=== PATIENT | male | born 1995 | race Caucasian/White ===

== ENCOUNTER 2016-04-06 16:42 | Emergency (ER) | payer OTHER ==
[~2016-04-06] VITALS: Ht 180.3 cm; Wt 117.9 kg
[~2016-04-06 16:42] MED LIST: AMOXICILLIN875 M1 PO; AUGMENTIN 875 M1 TAB PO; BENZONATATE200 MG PO; IBUPROFEN800 M1 PO; MEN'S MULTI-VI1 EACH PO; PROAIR HFA8.5 GM INH; PROVENTIL0.09 MG/A1 INH; VITAMIN B-121000 MC3 PO
--- NOTE | 2016-04-06 18:16 | ED HAND/WRIST INJURY COMPLAINT ---
History of Present Illness General Chief Complaint: Hand or Wrist Injury Stated Complaint: S/P FALL YESTERDAY RIGHT WRIST PAIN Source: patient Exam Limitations: no limitations Vital Signs & Intake/Output Vital Signs & Intake/Output Vital Signs Date Time Temp Pulse Resp B/P Pulse O2 O2 Flow FiO2 Ox Delivery Rate 04/06 1939 98.7 98 18 117/79 96 04/06 1656 98.0 93 14 127/81 100 Room Air Triage Note: PT TO ED FOR R WRIST PAIN AFTER SLIPPING AND FALLING SATURDAY. NO SWELLING, REDNESS OR DEFORMITY NOTED. 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 Triage Nurses Notes Reviewed? yes Occurred: 4 DAYS Duration: day(s): (4) Timing: no prior history Injury Environment: home Severity: moderate Severity Numbers: 6 Pain/Injury Location: Right: Wrist, Hand. Context: blow Method of Injury: twisted Modifying Factors: Improves With: immobilization. Worsens With: movement. HPI: Patient is a 21-year-old male presenting to the emergency Department with mom with chief complaint of right wrist, right hand pain has been going on for the past 4 days. Patient reports that he was walking down steps, slipped and twisted his right hand and wrist. Since then he's had moderate achy throbbing pain that is nonradiating. Pain is worse with movement. Has been taking Tylenol with little relief. Denies history of similar symptoms. No other injury. No numbness or tingling. No weakness. (DOMO CARMICHAEL,DEB) Allergies Coded Allergies: loracarbef (From LORABID) (Intermediate, HEART RACES 01/22/16) Uncoded Allergies: STEROIDS (Intermediate, HEART RACING PER PT MOM WAS GIVEN A KID FOR POISON JAN 04/06/16) Reconcile Medications No Known Home Medications (RUBEN VALVERDE,DIONTE Temple) Past History Travel History Traveled to [place] past 21 day No Medical History Any Pertinent Medical History? 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 No (DEB YE) Review of Systems Review of Systems Constitutional: Reports: no symptoms. Comments Review of systems: See HPI, All other systems negative. Constitutional, no chills fever or weight loss HEENT: No visual changes no sore throat no congestion Cardiovascular: No chest pain Skin, no jaundice no rashes Respiratory: No dyspnea cough sputum or hemoptysis GI: No nausea no vomiting Muscle skeletal: no back pain, no neck pain, Neurologic: No numbness no confusion Psych: No stress anxiety Immunology: No splenectomy or history of AIDS (DEB YE) Physical Exam Physical Exam General Appearance: well developed/nourished, no apparent distress, alert, awake , comfortable Hand Left: normal inspection, normal range of motion Hand Right: normal inspection, limited range of motion, tender Comments: Well-developed well-nourished no apparent distress. HEENT: Atraumatic, extraocular motion intact Neck: Supple, no lymphadenopathy Back: Nontender Respiratory: No respiratory distress Extremities: Tender to palpation over the distal radius. No snuffbox tenderness on the right. Limited range of motion of right wrist secondary to pain. Capillary refills intact in upper [place] bilaterally. Radial pulses are 2+ bilaterally. Full range of motion of right elbow. Neuro: Alert and oriented x3, motor and sensory intact in upper extremities. Psych: Mood affect normal, normal memory normal judgment. (DEB YE) Progress Differential Diagnosis: cellulitis, contusion, dislocation, fracture, sprain Plan of Care: Orders Procedure Date/time Status Durable Medical Equipment 04/06 1932 Active Departure Departure Time of Disposition: 1930 Disposition: HOME OR SELF CARE Condition: Stable Clinical Impression Primary Impression: Wrist sprain Qualifiers: Encounter type: initial encounter Laterality: right Qualified Code: S63.501A - Unspecified sprain of right wrist, initial encounter Referrals: COURTNEY SANDERS MD (PCP/Family) MARIA EUGENIA VALVERDE,EDUARDO Temple Additional Instructions: Follow-up with orthopedics if symptoms persist collimating appointment. Wear splint for support. Take [id number] Motrin and Tylenol as directed. Elevate. Return for worsening symptoms or concerns. Departure Forms: Customer Survey General Discharge Information (DEB YE) Departure Prescriptions: Current Visit Scripts No Known Home Medications PA/RN PROVIDER RELATIONS Co-Sign Statement Statement: ED Attending supervision documentation- [] I saw and evaluated the patient. I have also reviewed all the pertinent lab results and diagnostic results. I agree with the findings and the plan of care as documented in the PA's/RN PROVIDER RELATIONS's documentation. [x] I have reviewed the ED Record and agree with the PA's/RN PROVIDER RELATIONS's documentation. [] Additions or exceptions (if any) to the PAs/RN PROVIDER RELATIONS's note and plan are summarized below: [] (RUBEN VALVERDE,DIONTE Temple) Procedures Splinting Location: RIGHT WRIST Manual Alignment Performed: No Pre-Made Type: velcro Splint: wrist Splint Applied By: splint applied by other (NURSING) Pre-Proc Neuro Vasc Exam: normal Post-Proc Neuro Vasc Exam: normal Progress: Patient tolerated procedure well. (DOMO CARMICHAEL,DEB)
--- NOTE | 2016-04-06 19:29 | RADIOLOGY REPORT ---
EXAMINATION: XR WRIST, RIGHT, XR HAND, RIGHT CLINICAL INFORMATION: Pain status post fall COMPARISON: None. TECHNIQUE: 3 views of right hand, 4 views of the right wrist FINDINGS: Hand: There are no fractures or dislocations. No joint effusion is identified. No bone, joint or soft tissue abnormality is demonstrated. Wrist: No acute fracture or subluxation. The carpal rows are maintained. No radiopaque foreign body. No lytic or sclerotic lesion. IMPRESSION: Unremarkable right hand and wrist radiographs.
[2016-04-06 19:39] VITALS: BP 117/79
== END 2016-04-06 19:36 ==
LOC: ERH 16:42
DX: S63.501A Unspecified sprain of right wrist, initial encounter (principal); W01.0XXA Fall on same level from slipping, tripping and stumbling without subsequent striking against object, initial encounter
CPT/HCPCS: 73110-RT; 73130-RT

== ENCOUNTER 2016-07-13 06:41 | Emergency (ER) | payer OTHER ==
[~2016-07-13] VITALS: Ht 185.4 cm; Wt 114.8 kg
[2016-07-13 06:50] VITALS: BP 127/75
[2016-07-13] MEDS ORDERED: BLEPH-105 ML OPH (07:23)
--- NOTE | 2016-07-13 07:24 | ED EYE COMPLAINT ---
History of Present Illness General Chief Complaint: Eye Problems Stated Complaint: LEFT EYE PROBLEM ?PINK EYE Source: patient Exam Limitations: no limitations Vital Signs & Intake/Output Vital Signs & Intake/Output Vital Signs Date Time Temp Pulse Resp B/P B/P Pulse O2 O2 Flow FiO2 Mean Ox Delivery Rate 07/13 0650 97.7 88 18 127/75 95 Room Air Allergies Coded Allergies: loracarbef (From LORABID) (Intermediate, HEART RACES 01/22/16) Uncoded Allergies: STEROIDS (Intermediate, HEART RACING PER PT MOM WAS GIVEN A KID FOR POISON JAN 04/06/16) Reconcile Medications No Known Home Medications Triage Note: PT TO ED WITH COMPLAINTS OF ITCHY LEFT EYE THAT STARTED LAST NIGHT. PT STATES THAT UPON AWAKENING THIS MORNING HE WAS UNABLE TO OPEN LEFT EYE AND IT WAS IRRITATED. PT HAS HX OF SEASONAL ALLEGIES. NO REDNESS OR WATERING NOTED TO LEFT EYE AT THIS TIME. Triage Nurses Notes Reviewed? yes Onset: Abrupt Duration: hour(s): (2), continues in ED, getting worse Injury Environment: home Severity: moderate HPI: Patient presents for evaluation of possible left pink eye patient states that his left eye was inflamed and "shut" this morning with itchiness. 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 He does also suffer seasonal allergy symptoms but they typically don't result in eye symptoms. Past History Travel History Traveled to [place] past 21 day No Medical History Any Pertinent Medical History? 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 No Review of Systems Review of Systems Constitutional: Reports: no symptoms. Eyes: Reports: see HPI. Ear: Reports: no symptoms. Nose: Reports: no symptoms. Mouth: Reports: no symptoms. Throat: Reports: no symptoms. Respiratory: Reports: no symptoms. Cardiovascular: Reports: no symptoms. GI: Reports: no symptoms. Genitourinary: Reports: no symptoms. Musculoskeletal: Reports: no symptoms. Skin: Reports: no symptoms. Neurological/Psychological: Reports: no symptoms. Hematologic/Endocrine: Reports: no symptoms. Immunologic/Allergic: Reports: no symptoms. All Other Systems: Reviewed and Negative Physical Exam General Appearance: well developed/nourished, no apparent distress General Inspection: normal inspection Eyelid: normal inspection Conjunctiva/Sclera: normal inspection Cornea: normal inspection EOM: intact Pupil: PERRL General Inspection: normal inspection Physical Exam Head: atraumatic Nose: normal inspection Neck: supple, full range of motion Neurologic/Psych: awake, alert, normal mood/affect Skin: warm/dry Progress Differential Diagnosis: conjunctivitis, infectious versus allergic Plan of Care: [id number],f\\u prn Departure Departure Disposition: HOME OR SELF CARE Condition: Stable Clinical Impression Primary Impression: Left conjunctivitis Qualifiers: Conjunctivitis type: unspecified Qualified Code: H10.9 - Unspecified conjunctivitis Referrals: COURTNEY SANDERS MD (PCP/Family) Additional Instructions: Bleph-10 as prescribed. Take an skhe-lku-xxotyiq antiallergy medication such as Zyrtec or Claritin or Tonja. Follow-up with your primary care physician if not improved in 10 days. Return if any concerns or sudden worsening. Thank you for choosing the [facility] Emergency Department for your care. It was a pleasure to serve you today. Gurwinder Coronado M.D. [facility] Departure Forms: Customer Survey General Discharge Information Prescriptions: Current Visit Scripts Sulfacetamide Sodium (Bleph-10) 2 GTT OPH 4 TIMES/DAY #5 ML
== END 2016-07-13 07:29 ==
LOC: ERH 06:41
DX: H10.9 Unspecified conjunctivitis (principal)

== ENCOUNTER 2017-10-28 02:50 | Emergency (ER) | payer OTHER ==
[~2017-10-28] VITALS: Ht 182.9 cm; Wt 122.5 kg
[~2017-10-28 02:50] MED LIST changes: +BLEPH-105 ML OPH; +ZITHROMAX250 M2 PO
--- NOTE | 2017-10-28 03:31 | ED GENERAL ADULT ---
History of Present Illness General Chief Complaint: Abdominal Pain/Flank Pain Stated Complaint: WOKE UP WITH LEFT SIDED ABD/FLANK PAIN PER PT Source: patient Exam Limitations: no limitations Vital Signs & Intake/Output Vital Signs & Intake/Output Vital Signs Date Time Temp Pulse Resp B/P B/P Pulse O2 O2 Flow FiO2 Mean Ox Delivery Rate 10/28 0531 98.7 88 18 122/67 97 Room Air 10/28 0530 97 Room Air 10/28 0310 98.1 88 18 127/81 98 Room Air Allergies Coded Allergies: loracarbef (From LORABID) (Intermediate, HEART RACES 11/03/16) Corticosteroids (Glucocorticoids) (Mild, Heart racing per pt mom wsa given as a kid for poison lenny 10/28/17) Reconcile Medications Azithromycin (Zithromax) 250 MG TABLET 1 DP PO AD PHARYNGITIS 2 the first day followed by 1 for days 2-5 Ibuprofen 800 MG TABLET 1 TAB PO TID PRN PAIN Triage Note: PT TO ED C/O LEFT FLANK PAIN AND LEFT SIDE 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 PT STATES HE WOKE UP NAUSEUS BUT THAT HAS RESOLVED. URINATED JUST PRIOR TO GOING TO BED AT 0130 WITH NO COMPLAINTS. DENIES PMH OF KIDNEY STONES Triage Nurses Notes Reviewed? yes Onset: Abrupt Duration: hour(s): Timing: single episode today HPI: 22 year old male presents to the emergency department after being woken from his sleep with left sided sharp abdominal pain. He denies testicular pain. He says the pain starts in the left side of his back and radiates to his central abdomen. No vomiting, fever or testicle pain. Past History Travel History Traveled to [place] past 21 day No Medical History Any Pertinent Medical History? 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 No Review of Systems Review of Systems Constitutional: Reports: see HPI. Denies: fever. EENTM: Reports: no symptoms. Respiratory: Reports: no symptoms. Denies: short of breath. Cardiovascular: Reports: no symptoms. Denies: chest pain. GI: Reports: see HPI. Denies: diarrhea, vomiting. Genitourinary: Reports: no symptoms. Musculoskeletal: Reports: no symptoms. Skin: Reports: no symptoms. Neurological/Psychological: Reports: no symptoms. Hematologic/Endocrine: Reports: no symptoms. Immunologic/Allergic: Reports: no symptoms. All Other Systems: Reviewed and Negative Physical Exam Physical Exam General Appearance: well developed/nourished, alert, awake, moderate distress Head: atraumatic, normal appearance Eyes: Bilateral: normal appearance, PERRL, EOMI. Ears, Nose, Throat: normal ENT inspection Neck: normal inspection, full range of motion Respiratory: normal breath sounds, no respiratory distress Cardiovascular: regular rate/rhythm Peripheral Pulses: 4+ radial (R), 4+ radial (L) Gastrointestinal: tenderness Back: normal range of motion Extremities: normal inspection, normal range of motion Neurologic/Psych: no motor/sensory deficits, awake, alert, oriented x 3 Skin: intact, normal color, warm/dry Core Measures ACS in differential dx? No CVA/TIA Diagnosis: No Sepsis Present: No Sepsis Focused Exam Completed? No Progress Differential Diagnoses I considered the following diagnoses in my evaluation of the patient: [GERD, pyelonephritis, ureterolithiasis, diverticulitis, appendicitis,] Plan of Care: Orders Procedure Date/time Status LIPASE 10/28 032 Complete COMPREHENSIVE METABOLIC PANEL 10/28 321 Complete CBC WITHOUT DIFFERENTIAL 10/28 321 Complete AMYLASE 10/28 321 Complete URINALYSIS 10/28 0314 Complete Laboratory Tests 10/28/17 0332: Urine Color STRAW, Urine Clarity CLEAR, Urine pH 6.0, Ur Specific [place] 1.025, Urine Protein NEG, Urine Ketones NEG, Urine Nitrite NEG, Urine Bilirubin NEG, Urine Urobilinogen 0.2, Ur Leukocyte Esterase NEG, Ur Microscopic EXAM NOT REQUIRED, Urine Hemoglobin NEG, Urine Glucose NEG 10/28/17 0322: Anion Gap 13, Estimated GFR > 60, BUN/Creatinine Ratio 18.0, Glucose 107 H, Calcium 9.5, Total Bilirubin 0.3, AST 25, ALT 47, Alkaline Phosphatase 64, Total Protein 8.0, Albumin 4.5, Globulin 3.5, Albumin/Globulin Ratio 1.3, Amylase 36, Lipase 85, CBC w Diff MAN DIFF ORDERED, RBC 4.68 L, MCV 87.4, MCH 29.4, MCHC 33.6, RDW 14.1, MPV 8.7, Gran % 43.6, Lymphocytes % 41.7, Monocytes % 11.9 H, Eosinophils % 2.4, Basophils % 0.4, Absolute Granulocytes 3.7, Segmented Neutrophils 46, Absolute Lymphocytes 3.6 H, Lymphocytes 48, Monocytes 6, Absolute Monocytes 1.0 H, Absolute Eosinophils 0.2, Absolute Basophils 0, Platelet Estimate ADEQUATE, Polychromasia 1+ Initial ED EKG: none Departure Departure Disposition: STILL A PATIENT Condition: Stable Clinical Impression Primary Impression: Abdominal pain Referrals: Joseph Ambrocio MD (PCP/Family) Departure Forms: Customer Survey General Discharge Information Comments 10/28/17 The patient symptoms have improved but not completely resolved. The pain is on the left side. CAT scan, labs and urinalysis are completely normal. He did have cheesy bread before going to sleep. According to his mother he burped in the emergency department and had significant relief of all his symptoms. PATIENT: IRMA COLEMAN PRESENT AGE: 22 PATIENT ACCOUNT NO: [id number] : 93 LOCATION: [facility] ORDERING PHYSICIAN: Gurwinder Marshall DO SERVICE DATE: 10/28/17 EXAM TYPE: CAT - CT ABD & PELVIS W/O IV CONTRAS EXAMINATION: CT ABDOMEN AND PELVIS WITHOUT CONTRAST CLINICAL INFORMATION: Left flank pain COMPARISON: None TECHNIQUE: Multidetector volumetric imaging was performed from the superior aspect of the liver through the pubic symphysis. Sagittal and coronal reformatted images were obtained on the technologist's workstation. DLP: 988 mGy-cm FINDINGS: LUNG BASES: The visualized lung bases are unremarkable. LIVER, GALLBLADDER, AND BILIARY TREE: The liver is normal in size, shape, and attenuation. No focal hepatic lesion or biliary ductal dilatation is present. The gallbladder is unremarkable with no evidence of radiopaque gallstones, gallbladder wall thickening, or obvious pericholecystic inflammatory changes. PANCREAS: Unremarkable. SPLEEN: Unremarkable. ADRENAL GLANDS: Unremarkable. KIDNEYS AND URETERS: The kidneys are normal in size, shape, and attenuation. No hydronephrosis, hydroureter, or calculi seen. No perinephric stranding. BLADDER: Decompressed and not well assessed. GASTROINTESTINAL TRACT: The stomach is unremarkable. The small bowel is normal in caliber. There is no obstruction. Normal appendix. No colonic wall thickening or inflammatory change. No free air or free fluid. ABDOMINAL WALL: No significant hernia is appreciated. LYMPH NODES: Normal. VASCULAR: Unremarkable. PELVIC VISCERA: The prostate and seminal vesicles are unremarkable. OSSEOUS STRUCTURES: No acute or suspicious osseous abnormality. IMPRESSION: No acute findings of the abdomen or pelvis. No inflammatory changes. No hydronephrosis or nephrolithiasis. DICTATED BY: Ajith Jaime MD DATE/TIME DICTATED:10/28/17406 INTERMEDIATE FRAME TENDER:MELISSA DATE/TIME TRANSCRIBED:10/28/17406 CONFIDENTIAL, DO NOT COPY WITHOUT APPROPRIATE AUTHORIZATION. <Electronically signed in Other Vendor System> SIGNED BY: Ajith Jaime MD 10/28 0413 Critical Care Note Critical Care Note Critical Care Time: non-applicable
[2017-10-28 03:43] LABS: ABSOLUTE BASOPHIL COUNT 0 /CUMM (0.0-0.2); ABSOLUTE EOSINOPHIL COUNT 0.2 /CUMM (0.0-0.7); ABSOLUTE GRANULOCYTE CT 3.7 /CUMM (1.4-6.5); ABSOLUTE LYMPH COUNT 3.6 /CUMM (1.2-3.4); BASOPHIL % 0.4 % (0.0-2.0); EOSINOPHIL % 2.4 % (0-5); GRANULOCYTE % 43.6 % (42.2-75.2); HEMATOCRIT 40.9 % (42-52); MEAN CORPUSCULAR HGB 29.4 PG (27.0-31.0); MEAN CORPUSCULAR HGB CONC 33.6 G/DL (33.0-37.0); MEAN CORPUSCULAR VOLUME 87.4 FL (80.0-94.0); MEAN PLATELET VOLUME 8.7 FL (7.4-10.4); PLATELET COUNT 251 /CUMM (130-400); RBC DISTRIBUTION WIDTH 14.1 % (11.5-14.5); RED BLOOD CELL CT 4.68 /CUMM (4.70-6.10); WHITE BLOOD CELL COUNT 8.5 /CUMM (4.8-10.8)
--- NOTE | 2017-10-28 04:13 | CT SCAN REPORT ---
EXAMINATION: CT ABDOMEN AND PELVIS WITHOUT CONTRAST CLINICAL INFORMATION: Left flank pain COMPARISON: None TECHNIQUE: Multidetector volumetric imaging was performed from the superior aspect of the liver through the pubic symphysis. Sagittal and coronal reformatted images were obtained on the technologist's workstation. DLP: 988 mGy-cm FINDINGS: LUNG BASES: The visualized lung bases are unremarkable. LIVER, GALLBLADDER, AND BILIARY TREE: The liver is normal in size, shape, and attenuation. No focal hepatic lesion or biliary ductal dilatation is present. The gallbladder is unremarkable with no evidence of radiopaque gallstones, gallbladder wall thickening, or obvious pericholecystic inflammatory changes. PANCREAS: Unremarkable. SPLEEN: Unremarkable. ADRENAL GLANDS: Unremarkable. KIDNEYS AND URETERS: The kidneys are normal in size, shape, and attenuation. No hydronephrosis, hydroureter, or calculi seen. No perinephric stranding. BLADDER: Decompressed and not well assessed. GASTROINTESTINAL TRACT: The stomach is unremarkable. The small bowel is normal in caliber. There is no obstruction. Normal appendix. No colonic wall thickening or inflammatory change. No free air or free fluid. ABDOMINAL WALL: No significant hernia is appreciated. LYMPH NODES: Normal. VASCULAR: Unremarkable. PELVIC VISCERA: The prostate and seminal vesicles are unremarkable. OSSEOUS STRUCTURES: No acute or suspicious osseous abnormality. IMPRESSION: No acute findings of the abdomen or pelvis. No inflammatory changes. No hydronephrosis or nephrolithiasis.
[2017-10-28 05:31] VITALS: BP 122/67
== END 2017-10-28 05:31 ==
LOC: ERH 02:50
PROVIDERS: Emergency Medicine
DX: R10.9 Unspecified abdominal pain (principal)
CPT/HCPCS: 74176; 81003; 96372; J1885